=== PATIENT | female | born 1990 | race Caucasian/White ===

== ENCOUNTER 2018-09-02 04:59 | Inpatient (IN) ==
[2018-09-02] MEDS ORDERED: ONDANSETRON 4 MG/2 ML VIAL IV PRN ×2 (05:08→15:04)
[2018-09-02] MEDS ORDERED: MEPERIDINE 50 MG/1 ML VIAL IV PRN (05:08)
[2018-09-02] MEDS ORDERED: BUTORPHANOL 2 MG/ML VIAL IV PRN (05:08)
[2018-09-02] MEDS ORDERED: ePHEDrine 50 MG/ML AMP IV PRN (05:10)
[2018-09-02] MEDS ORDERED: NALOXONE 0.4 MG/ML VIAL IV PRN (05:10)
[2018-09-02] MEDS ORDERED: OXYTOCIN/LR 20 UNIT/1,000 ML BAG IV SCH (05:30)
[2018-09-02] MEDS ORDERED: fentaNYL 2 MCG/ROPIV 0.2% EPID 100 ML EPIDURAL SCH (05:30)
[2018-09-02 05:40] LABS: Basophils % 0.3 % (0.0-0.8); Eosinophils % 0.4 % (0.00-10.9); Hematocrit 31.3 VOL% (35.7-47.0); Hemoglobin 9.9 GM/DL (12.0-16.0); Immature Granulocytes % 1.5 %; Immature Granulocytes Absolute 0.14 #; Lymphocytes # 1.6 10*3/uL (1.4-4.0); Lymphocytes % 16.3 % (21.3-54.2); Mean Corpuscular HGB Conc 31.6 GM/DL (32-36); Mean Corpuscular Hemoglobin 27 PG (27-34); Mean Corpuscular Volume 85.1 FL (87-102); Mean Platelet Volume 10.5 FL (9.6-12.0); Monocytes # 0.6 10*3/uL (0.11-0.8); Monocytes % 6.4 % (1.7-12.7); Neutrophils # 7.2 10*3/uL (1.4-7.4); Neutrophils % 75.1 % (38.7-73.9); Platelet Count 143 T/CUMM (130-400); Red Blood Count 3.68 MC/CUMM (3.8-5.5); Red Cell Distribution Width 13.6 % (9.3-17.3); White Blood Count 9.6 T/CUMM (4-12)
[2018-09-02] MEDS ORDERED: ALUMINUM/MAGNES/SIMETH MAX STR 30 ML UDCUP PO PRN (06:15)
[2018-09-02] MEDS: AMPICILLIN INJ 2,000 MG in SODIUM CHLORIDE 0.9% 100 ML IV SCH ×2 (06:26→11:49)
[2018-09-02] MEDS: LACTATED RINGERS 1,000 ML IV SCH ×2 (06:26→10:40)
[2018-09-02] MEDS ORDERED: INFLUENZA VIRUS VACCINE 0.5 ML SYRINGE IM ONE (09:00)
[2018-09-02] MEDS ORDERED: CITRIC ACID/SODIUM CITRATE 30 ML UDCUP PO ONE (10:23)
[2018-09-02] MEDS: FAMOTIDINE 20 MG/2 ML VIAL IV SCH ×2 (10:30→21:08)
[2018-09-02 11:46] LABS: Apearance,Urine CLEAR (Clear); Bilirubin,Urine Negative (Negative); Blood, Urine Negative (Negative); Glucose,Urine (UA) Negative (Negative); Ketones,Urine 20 mg/dL (Negative); Mucus,Urine Occasional /LPF (Occasional); Nitrite,Urine Negative (Negative); Protein,Urine Negative; RBC,Urine <1 /HPF (0-4); Urine Color Yellow (Yellow); Urine Specific Gravity 1.012 (1.001-1.035); Urine Urobilinogen < 2.0 EU/DL (0.2-1.0); WBC,Urine <1 /HPF (0-6)
[2018-09-02] MEDS ORDERED: LIDOCAINE 1% 50 ML VIAL ONE (13:37)
[2018-09-02] MEDS ORDERED: miSOPROStol 200 MCG TABLET ONE (13:37)
[2018-09-02] MEDS ORDERED: METHYLERGONOVINE 0.2 MG/1 ML AMP ONE (13:38)
[2018-09-02] MEDS ORDERED: CARBOPROST TROMETHAMINE 250 MCG/ML AMP IM ONE (13:38)
[2018-09-02] MEDS ORDERED: BISACODYL 10 MG SUPP RECTAL PRN (15:04)
[2018-09-02] MEDS ORDERED: MEASLES/MUMPS/RUBELLA VACCINE 0.5 ML VIAL SUBCUT ONE (15:04)
[2018-09-02] MEDS ORDERED: OXYTOCIN/LR 20 UNIT/1,000 ML BAG IV ONE (15:04)
[2018-09-02] MEDS ORDERED: LANOLIN 50% CREAM 0.3 OZ TUBE TOP PRN (15:04)
[2018-09-02] MEDS ORDERED: ACETAMINOPHEN 325 MG TABLET PO PRN (15:04)
[2018-09-02] MEDS ORDERED: RHO(D) IMMUNE GLOBULIN 300 MCG SYRINGE IM ONE (15:04)
[2018-09-02] MEDS ORDERED: oxyCODONE/ACETAMINOPHEN 5-325 MG TABLET PO PRN ×2 (15:04)
[2018-09-02] MEDS ORDERED: BENZOCAINE 20%/MENTHOL 0.5% SPRAY 56 GM CAN TOP PRN (15:04)
[2018-09-02] MEDS ORDERED: DIPH/TET/ACEL PERT BOOSTER VACCINE 0.5 ML VIAL IM ONE (15:04)
[2018-09-02] MEDS ORDERED: HYDROCORTISONE 2.5% RECTAL CREAM 30 GM TUBE TOP PRN (15:04)
[2018-09-02] MEDS ORDERED: WITCH HAZEL PADS 100/JAR TOP PRN (15:04)
[2018-09-02] MEDS: IBUPROFEN 800 MG TABLET PO PRN (19:32)
[2018-09-02] MEDS: DOCUSATE SODIUM 100 MG CAPSULE PO SCH (21:08)
[2018-09-03 05:54] LABS: Basophils % 0.3 % (0.0-0.8); Eosinophils % 0.3 % (0.00-10.9); Hematocrit 26.5 VOL% (35.7-47.0); Hemoglobin 8.3 GM/DL (12.0-16.0); Immature Granulocytes % 0.9 %; Lymphocytes # 1.8 10*3/uL (1.4-4.0); Lymphocytes % 15.4 % (21.3-54.2); Mean Corpuscular HGB Conc 31.3 GM/DL (32-36); Mean Corpuscular Hemoglobin 27 PG (27-34); Mean Corpuscular Volume 85.5 FL (87-102); Mean Platelet Volume 11.3 FL (9.6-12.0); Monocytes # 0.9 10*3/uL (0.11-0.8); Monocytes % 7.5 % (1.7-12.7); Neutrophils # 8.8 10*3/uL (1.4-7.4); Neutrophils % 75.6 % (38.7-73.9); Platelet Count 135 T/CUMM (130-400); Red Cell Distribution Width 13.9 % (9.3-17.3); White Blood Count 11.6 T/CUMM (4-12)
[2018-09-03] MEDS: FAMOTIDINE 20 MG/2 ML VIAL IV SCH (08:42)
[2018-09-03] MEDS: FERROUS SULFATE 325 MG TABLET PO SCH ×2 (08:42→21:30)
[2018-09-03] MEDS: DOCUSATE SODIUM 100 MG CAPSULE PO SCH ×2 (08:42→21:30)
[2018-09-03] MEDS: IBUPROFEN 800 MG TABLET PO PRN (19:50)
[2018-09-04 07:46] VITALS: BP 122/79
[2018-09-04] MEDS: DOCUSATE SODIUM 100 MG CAPSULE PO SCH (08:52)
[2018-09-04] MEDS: FERROUS SULFATE 325 MG TABLET PO SCH (08:52)
== END 2018-09-04 11:20 | disposition home or self-care (01) | DRG 807 ==
LOC: N.LDOUT 04:59 → N.LD 05:00 → N.OB 17:24
PROVIDERS: ADMIT Specialist; ATTEND Specialist